=== PATIENT | female | born 1970 | race Caucasian/White ===

== ENCOUNTER → 2020-06-26 | Outpatient (CLI) | payer OTHER ==
--- NOTE | 2020-06-26 17:37 | XR ---
RESULT: HISTORY: XR skull pre MRI TECHNIQUE: 2 views of the skull were obtained. COMPARISON: None. FINDINGS: There is demonstration of left frontal craniotomy. Additional fixation plate transfixing the left sup erior orbital wall as well as left temporal bone region. No acute fracture or dislocation. The visual ized paranasal sinuses are adequately aerated. IMPRESSION: Left orbital wall postsurgical changes/metallic density. Additional postsurgical changes as above.
== END | disposition home or self-care (01) ==
LOC: RADXRMAIN 16:32
PROVIDERS: ATTEND Psychiatry & Neurology Pain Medicine
DX: Z01.818 Encounter for other preprocedural examination (principal); Z98.890 Other specified postprocedural states
CPT/HCPCS: 70250

== ENCOUNTER → 2022-03-05 | Outpatient (CLI) | payer OTHER ==
[2022-03-05 18:02] LABS: HCT 37.6 % (37.2-46.3); HGB 12.2 g/dL (12.0-15.0); MCH 31.3 pg (27.0-32.0); MCHC 32.4 g/dL (32.0-37.0); MCV 96.4 fL (80.0-97.0); Mean Platelet Volume 10.3 fL (9.5-12.2); NRBC Per 100 WBC 0 /100 WBCS (0.0-0.0); Platelet Count 280 X 10*3/uL (140-440); WBC 8.06 X 10*3/uL (4.50-10.00)
[2022-03-05 18:34] LABS: African American GFR (CKD) 67.3 (60.0-200.0); Anion Gap 11.6 mmol/L (10.00-18.00); Blood Urea Nitrogen 20.1 mg/dL (9.0-27.0); Carbon Dioxide 29.4 mmol/L (20.0-27.5); Non-African American GFR(CKD) 58.1 (60.0-200.0); Potassium 3.6 mmol/L (3.5-5.5)
== END | disposition home or self-care (01) ==
LOC: LABPAT 14:08
PROVIDERS: ATTEND Internal Medicine
DX: Z01.812 Encounter for preprocedural laboratory examination (principal); R06.02 Shortness of breath
CPT/HCPCS: 80051; 82565; 84520; 85027

== ENCOUNTER → 2022-03-13 | Day surgery (SDC) | payer OTHER ==
[2022-03-12 10:23] VITALS: BMI 41.5
[~2022-03-13] MED LIST: ALPRAZolam 0.25 MG TAB PO PRN; ALPRAZolam 0.5 MG TAB PO PRN; ASPIRIN 325 MG TAB PO ONE; HEPARIN SODIUM 1,000 UN/ML (10ML VL) IV ONE; HEPARIN SODIUM 1,000 UN/ML (10ML VL) ONE; IOPAMIDOL-370 125ML BTL INJ ONE; LIDOCAINE 1% INJ 10MG/ML (30 ML VIAL-PF) SQ ONE; MIDAZOLAM 2 MG/2 ML VIAL IV ONE; NITROGLYCERIN SL TABS 0.4 MG TAB SUBLINGUAL PRN; SODIUM CHLORIDE 0.9% 1,000 ML IV ONE; SODIUM CHLORIDE 0.9% 1,000 ML in EMPTY BAG 1 BAG IV ONE; VERAPAMIL 2.5 MG/ML 2 ML AMP INTRAARTER ONE; VERAPAMIL 2.5 MG/ML 2 ML AMP ONE; fentaNYL (PF) 50 MCG/ML 2 ML AMP IV ONE; fentaNYL (PF) 50 MCG/ML 2 ML AMP ONE
[2022-03-13 08:00] VITALS: RESP 16; TEMP 97.3
--- NOTE | 2022-03-13 10:03 | P.CARDCATH ---
Description of Procedure: PROCEDURES PERFORMED: Left heart catheterization, bilateral coronary angiography INDICATION: Abnormal stress test, coronary artery calcifications CONSENT:I have discussed the risks, benefits and alternative therapies for the above-mentioned procedure and for both sedation/analgesia as well as necessary blood product administration, if indicated, as they pertain to this patient. The patient has indicated understanding and acceptance of the risks and procedures discussed. PROCEDURE: After the risks, benefits and alternatives of the above mentioned procedure explained in detail with the patient, informed consent was obtained. Patient was taken to the catheterization lab and prepped and draped in usual fashion. 1% lidocaine was used to anesthetize the right radial artery. A 6- Norwegian sheath was placed in the right radial artery using modified Seldinger technique. Left coronary angiography was performed with a 5-Norwegian JL 3.5 catheter and right coronary angiography was performed with a 5-Norwegian JR5 catheter in various views. A 5-Norwegian FR5 catheter was inserted into the left ventricle and pressure measurements were obtained. The right radial sheath was removed and a TR band was placed with hemostasis achieved. The patient tolerated the procedure well. Patient was transported back to the post catheterization holding area in stable condition. Conscious Sedation: Patient was monitored under the direct supervision of vision of myself for conscious sedation using Versed and fentanyl for a total duration of 10 minutes HEMODYNAMICS: Aortic: 99/51 LV: 101/2, LVEDP 12 SELECTIVE CORONARY ARTERIOGRAPHY: LEFT MAIN: The left main is a large caliber vessel which bifurcates into the LAD and circumflex. There is no significant stenosis. LEFT ANTERIOR DESCENDING CORONARY ARTERY: LAD is a large caliber vessel which wraps around to the apex. There are mild luminal irregularities of the LAD with 10% stenosis and a small to moderate caliber diagonal 1 branch with a 50-60 percent proximal stenosis. LEFT CIRCUMFLEX CORONARY ARTERY: Left circumflex is a moderate caliber vessel with mild luminal irregularities. OM 2 is a small caliber vessel with 60-70% stenosis. RIGHT CORONARY ARTERY: The right coronary artery is a moderate caliber vessel which gives off a PDA and PLV branch and is the dominant vessel. There are mild luminal irregularities FINAL IMPRESSION: 1. CAD as described above including 10% LAD, 50-60% diagonal 1, 60-70% small to moderate caliber OM 2 stenosis 2. Normal left sided filling pressures PLAN: 1. Aggressive risk factor modification per most recent ACC/AHA guidelines. 2. Given no significant ischemia noted in the OM 2 distribution and not having obvious symptoms would recommend medical therapy for OM 2 and diagonal 1 branch. If patient has more angina may consider iFR. Given concern of upcoming colon cancer surgery recommend medical therapy.
[2022-03-13 13:08] VITALS: PULSE 75
[2022-03-13 14:12] VITALS: BP 90/50
== END ==
LOC: CATHCVL 07:21
PROVIDERS: ATTEND Internal Medicine
DX: I25.10 Atherosclerotic heart disease of native coronary artery without angina pectoris (principal); I10 Essential (primary) hypertension; E78.5 Hyperlipidemia, unspecified; F17.210 Nicotine dependence, cigarettes, uncomplicated; Z79.899 Other long term (current) drug therapy
CPT/HCPCS: 93458; C1769; C1894; J2250; J2001; J3010; J1644; Q9967

== ENCOUNTER 2022-09-11 13:48 | Emergency (ER) | payer OTHER ==
[2022-09-11] MEDS ORDERED: ORPHENADRINE 30 MG/ML 2 ML VIAL IM STA (14:14)
[2022-09-11] MEDS ORDERED: IBUPROFEN 800 MG TAB PO STA (14:14)
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
[2022-09-11 16:38] VITALS: BP 133/85; PULSE 58; RESP 17; TEMP 98.4
== END 2022-09-11 17:00 | disposition home or self-care (01) ==
LOC: EC 13:48
DX: R51.9 Headache, unspecified (principal); M79.18 Myalgia, other site; E78.5 Hyperlipidemia, unspecified; I10 Essential (primary) hypertension; F32.A Depression, unspecified; Z85.841 Personal history of malignant neoplasm of brain; F17.200 Nicotine dependence, unspecified, uncomplicated; Z88.2 Allergy status to sulfonamides; Z79.899 Other long term (current) drug therapy; V49.40XA Driver injured in collision with unspecified motor vehicles in traffic accident, initial encounter
CPT/HCPCS: 99284 ×2; 96372 ×2; 73562; 72125; 70450; J2360